=== PATIENT | male | born 1975 | race Caucasian/White ===

== ENCOUNTER 2016-12-08 22:39 | Emergency (ER) | payer OTHER ==
[2016-12-08] MEDS ORDERED: ASPIRIN 81 MG CHEWABLE TABLETS PO ONE (23:00)
--- NOTE | 2016-12-08 23:00 | PDOC ---
[id number] Source: Patient Exam Limitations: No Limitations - History of Present Illness Presenting Symptoms: Chest Pain Severity/Quality: reports: ingestion Location: reports: central Chest Pain Radiation: reports: no radiation Activities at Onset: reports: none Nitro Today/Relief: Yes: no nitro taken today Aspirin Received prior to arrival (Core Measure): Yes: 81 mg x 4, provided at home, provided by ED Associated Symptoms: Yes: Heartburn <Essence Swanson - Last Filed: 12/09/16 01:57> <Nuris Berman - Last Filed: 12/13/16 20:24> - General Chief Complaint: Chest Pain Stated Complaint: CHEST PAIN Time Seen by Provider: 12/08/16 22:59 - History of Present Illness Initial Comments: The patient is a 41 year old male with a past medical hx of HTN and fatty liver disease who presents to the ED complaining of chest pain since 1500 this afternoon. The patient reports associated shortness of breath. He notes his chest pain is localized to the center of his chest. The patient reports his pain has improved since the onset. He reports his pain is exacerbated with inspiration. The patient denies diaphoresis, palpitations The patient denies fever, chills, nausea, vomiting. PCP: Dr. Solis Surgical: Appendectomy, fractured clavicle repair (Amber Kraft) Past History <Amber Kraft - Last Filed: 12/08/16 23:49> - Past Medical History HTN: Yes - Surgical History Appendectomy: Yes - Immunization History Immunization Up to Date: No - Psycho/Social/Smoking Cessation Hx Suicidal Ideation: No Smoking History: Current every day smoker Have you smoked in the past 12 months: Yes Information on smoking cessation initiated: No Hx Alcohol Use: No Drug/Substance Use Hx: No <Essence Swanson - Last Filed: 12/09/16 01:57> <Nuris Berman - Last Filed: 12/13/16 20:24> - Past Medical History Allergies/Adverse Reactions: Allergies Allergy/AdvReac Type Severity Reaction Status Date / Time No Known Allergies Allergy Verified 12/08/16 22:44 Home Medications: Ambulatory Orders NK [No Known Home Medication] 12/08/16 Review of Systems - Review of Systems Able to Perform ROS?: Yes <Amber Kraft - Last Filed: 12/08/16 23:49> <Essence Swanson - Last Filed: 12/09/16 01:57> <Nuris Berman - Last Filed: 12/13/16 20:24> - Review of Systems Comments:: 12/08/16 23:48 CONSTITUTIONAL: Absent: fever, chills, diaphoresis, generalized weakness, malaise, loss of appetite HEENT: Absent: rhinorrhea, nasal congestion, throat pain, throat swelling, difficulty swallowing, mouth swelling, ear pain, eye pain, visual Changes CARDIOVASCULAR: +Chest pain. Absent: syncope, palpitations, irregular heart rate, lightheadedness, peripheral edema RESPIRATORY: +Shortness of breath. Absent: cough, orthopnea, wheezing, stridor, hemoptysis GASTROINTESTINAL: Absent: abdominal pain, abdominal distension, nausea, vomiting, diarrhea, constipation, melena, hematochezia GENITOURINARY: Absent: dysuria, frequency, urgency, hesitancy, hematuria, flank pain, genital pain MUSCULOSKELETAL: Absent: myalgia, arthralgia, joint swelling SKIN: Absent: rash, itching, pallor HEMATOLOGIC/IMMUNOLOGIC: Absent: easy bleeding, easy bruising, lymphadenopathy, frequent infections ENDOCRINE: Absent: unexplained weight gain, unexplained weight loss, heat intolerance, cold intolerance NEUROLOGIC: Absent: headache, focal weakness or paresthesias, dizziness, unsteady gait, seizure, mental status changes, bladder or bowel incontinence PSYCHIATRIC: Absent: anxiety, depression, suicidal or homicidal ideation, hallucinations. (Amber Kraft) *Physical Exam <Amber Kraft - Last Filed: 12/08/16 23:49> <Essence Swanson - Last Filed: 12/09/16 01:57> <Nuris Berman - Last Filed: 12/13/16 20:24> - Vital Signs Last Vital Signs Temp Pulse Resp BP Pulse Ox 97.3 F L 58 L 16 125/80 97 12/09/16 05:58 12/09/16 05:58 12/09/16 05:58 12/09/16 05:58 12/09/16 05:58 - Physical Exam Comments: 12/08/16 23:48 GENERAL: Well developed, well nourished. Awake and alert. No acute distress. HEENT: Normocephalic, atraumatic. PERRLA, EOMI. No conjunctival pallor. Sclera are non- icteric. Moist mucous membranes. Oropharynx is clear. NECK: Supple. Full ROM. No JVD. Carotid pulses 2+ and symmetric, without bruits. No thyromegaly. No lymphadenopathy. CARDIOVASCULAR: Regular rate and rhythm. No murmurs, rubs, or gallops. Distal pulses are 2+ and symmetric. PULMONARY: +Left lobe scattered expiratory wheezing. No evidence of respiratory distress. No rales or rhonchi. ABDOMINAL: Soft. Non-tender. Non-distended. No rebound or guarding. No organomegaly. Normoactive bowel sounds. MUSCULOSKELETAL Normal range of motion at all joints. No bony deformities or tenderness. No CVA tenderness. EXTREMITIES: No cyanosis. No clubbing. No edema. No calf tenderness. SKIN: Warm and dry. Normal capillary refill. No rashes. No jaundice. NEUROLOGICAL: Alert, awake, appropriate. Cranial nerves 2-12 intact. No deficits to light touch and temperature in face, upper extremities and lower extremities. PSYCHIATRIC: Cooperative. Good eye contact. Appropriate mood and affect. (Amber Kraft) Heart Score/ECG Review <Amber Kraft - Last Filed: 12/08/16 23:49> <Essence Swanson - Last Filed: 12/09/16 01:57> <Nuris Berman - Last Filed: 12/13/16 20:24> - ECG Impressions Comment:: 12/08/16 23:[address] Swanson NSR at a rate of 74 bpm Normal EKG (Amber Kraft) ED Treatment Course - LABORATORY CBC & Chemistry Diagram: 12/08/16 23:27 12/08/16 23:27 <Amber Kraft - Last Filed: 12/08/16 23:49> - LABORATORY CBC & Chemistry Diagram: 12/08/16 23:27 12/08/16 23:27 <Essence Swanson - Last Filed: 12/09/16 01:57> - LABORATORY CBC & Chemistry Diagram: 12/08/16 23:27 12/08/16 23:27 <Nuris Berman - Last Filed: 12/13/16 20:24> - ADDITIONAL ORDERS Additional order review: 12/08/16 23:27 RBC 4.89 MCV 87.0 MCHC 34.4 RDW 12.1 MPV 8.5 Neutrophils % 65.1 Lymphocytes % 24.3 Monocytes % 8.1 Eosinophils % 2.2 Basophils % 0.3 - Medications Given in the ED: ED Medications Discontinued Medications Generic Name Dose Route Start Last Admin Trade Name Dwaine PRN Reason Stop Dose Admin Al Hydroxide/Mg Hydroxide 30 ml 12/08/16 23:48 12/08/16 23:59 Mylanta Oral Suspension - PO 12/08/16 23:49 30 ml ONCE ONE Administration Aspirin 162 mg 12/08/16 23:00 12/08/16 23:29 Asa - PO 12/08/16 23:01 162 mg ONCE ONE Administration Medical Decision Making <Amber Kraft - Last Filed: 12/08/16 23:49> <Essence Swanson - Last Filed: 12/09/16 01:57> <Nuris Berman - Last Filed: 12/13/16 20:24> - Medical Decision Making 12/13/16 20:23 Pt signed out to me. Atypical CP; 2nd enzyme returned normal. He will be asked to follow with PMD. Outpatient cardio and GI as needed. (Nuris Berman) *DC/Admit/Observation/Transfer <Amber Kraft - Last Filed: 12/08/16 23:49> <Essence Swanson - Last Filed: 12/09/16 01:57> - Discharge Dispostion Admit: No <Nuris Berman - Last Filed: 12/13/16 20:24> Diagnosis at time of Disposition: Atypical chest pain - Discharge Dispostion Disposition: HOME Condition at time of disposition: Stable - Referrals Referrals: Sandi Kitchen [Primary Care Provider] - Daniel Lee MD [Staff Physician] - - Patient Instructions Printed Discharge Instructions: DI for Atypical Chest Pain - Attestations Scribe Attestion: 12/08/16 23:48 Documentation prepared by Amber Kraft, acting as regional medical director for Essence Swanson MD/DO. (Amber Kraft)
[2016-12-08] MEDS ORDERED: ASPIRIN 81 MG CHEWABLE TABLETS ONE (23:19)
[2016-12-08 23:31] VITALS: BMI 34.2
[2016-12-08 23:34] LABS: BASOPHIL 0.3 % (0-2.0); EOSINOPHIL 2.2 % (0-4.5); MCH 29.9 pg (25.7-33.7); MCHC 34.4 g/dl (32.0-35.9); MEAN PLT VOLUME 8.5 fl (7.5-11.1); NEUTROPHILS 65.1 % (42.8-82.8); PLATELET COUNT 226 K/MM3 (134-434); RDW 12.1 % (11.9-15.9); WHITE BLOOD COUNT 10.3 K/mm3 (4.0-10.0)
[2016-12-08 23:46] LABS: INR 0.99 (0.82-1.09); PROTHROMBIN TIME (PATIENT) 10.9 SEC (9.98-11.88)
[2016-12-08] MEDS ORDERED: MAG HYDROX/AL HYDROX/SIMETH 30 ML UNIT-DOSE CUP PO ONE (23:48)
[2016-12-08] MEDS ORDERED: MAG HYDROX/AL HYDROX/SIMETH 30 ML UNIT-DOSE CUP ONE (23:52)
[2016-12-09 00:09] LABS: ALBUMIN 4.7 g/dl (3.4-5.0); ANION GAP 11 (8-16); BILIRUBIN,TOTAL 0.3 mg/dL (0.2-1.0); CALCIUM 9.6 mg/dL (8.5-10.1); CHOLESTEROL 245 mg/dL (50-200); CO2 29 mmol/L (21-32); COCKROFT - GAULT 171.4; CREATININE 0.9 mg/dL (0.7-1.3); GLUCOSE,RANDOM 97 mg/dL (74-106); MAGNESIUM 2.2 mg/dL (1.8-2.4); SGOT/AST 28 U/L (15-37); SGPT/ALT 63 U/L (12-78); TOT PROT 8.4 g/dl (6.4-8.2)
[2016-12-09 00:10] LABS: ALK PHOS 62 U/L (45-117); TROPONIN I < 0.02 ng/ml (0.00-0.05)
[2016-12-09 03:01] LABS: LDL CHOLESTEROL (ONLY SJRH) 161 mg/dL (5-100)
[2016-12-09 05:59] VITALS: BP 125/80; PULSE 58; TEMP 97.3
[2016-12-09 06:25] LABS: TROPONIN I < 0.02 ng/ml (0.00-0.05)
--- NOTE | 2016-12-09 11:06 | EKG ---
Test Reason : Blood Pressure : / mmHG Vent. Rate : 074 BPM Atrial Rate : 074 BPM P-R Int : 164 ms QRS Dur : 094 ms QT Int : 376 ms P-R-T Axes : 014 028 037 degrees QTc Int : 417 ms NORMAL SINUS RHYTHM NORMAL ECG WHEN COMPARED WITH ECG OF 25-DEC-2015 05:52, PREMATURE ATRIAL COMPLEXES ARE NO LONGER PRESENT Confirmed by ALEJANDRA PINEDA MD ([id number]) on 12/09/2016 11:05:58 AM Referred By: Confirmed By:ALEJANDRA PINEDA MD
== END 2016-12-09 06:59 | disposition home or self-care (01) ==
LOC: JER 22:39
DX: R07.89 Other chest pain (principal); I10 Essential (primary) hypertension; K76.0 Fatty (change of) liver, not elsewhere classified; F17.210 Nicotine dependence, cigarettes, uncomplicated
CPT/HCPCS: 36415; 71010-TC; 80053; 80061; 82550; 82553; 83721; 83735; 83880; 84484; 85025; 85379; 85610; 93005; 93010; 99284-25

== ENCOUNTER 2017-09-11 21:19 | Emergency (ER) | payer OTHER ==
[2017-09-11] MEDS ORDERED: ASPIRIN 81 MG CHEWABLE TABLETS PO ONE (21:56)
[2017-09-11 21:59] VITALS: TEMP 100.3; BMI 34.2
--- NOTE | 2017-09-11 21:59 | PDOC ---
Rapid Medical Evaluation Chief Complaint: Headache Time Seen by Provider: 09/11/17 21:53 Medical Evaluation: Allergies Allergy/AdvReac Type Severity Reaction Status Date / Time No Known Allergies Allergy Verified 12/08/16 22:44 09/11/17 21:54 CC; high blood pressure and headache x 4 days. currently on amlodipine 5 mg took a dose 2pm. c/o pain to left side pain. + smoker PE: patient alert ox3. breath sounds clear occasional inspiratory wheezing Plan; cbc, cmp, cardiac, chest xay PMD: Dr. Jerez Patient to the ER for further management of care. 09/11/17 21:58
[2017-09-12] MEDS ORDERED: ACETAMINOPHEN 325 MG TABLET (FP) PO ONE (00:14)
--- NOTE | 2017-09-12 00:16 | PDOC ---
History of Present Illness - General History Source: Patient, Family Exam Limitations: No Limitations - History of Present Illness Initial Comments: 09/12/17 00:17 The patient is a 41 year old male, with a significant past medical history of hypertension, who presents to the emergency department complaining of headache and sore throat for four days and chest discomfort for two days. The patient reports the headache as a throbbing feeling that feels like a band around his head and reports he took 2 Excedrin for the headache with mild relief. The patient reports the chest discomfort as a mild burning sensation. The patient reports he has not had a flu shot. He denies chest pain, palpitations or shortness of breath. He denies numbness or tingling. He denies recent fever, chills, or dizziness. He denies dysuria, frequency, or hematuria. Allergies: NKA Past Surgical History: Appendix, Clavicle and Right ankle Social History: Occasional Smoker. PMD: Dr. Solis <Gutierrez Martinez - Last Filed: 09/12/17 00:21> <Maggie Brady - Last Filed: 09/12/17 01:57> - General Chief Complaint: Blood Pressure Problem Stated Complaint: HIGH BP Time Seen by Provider: 09/11/17 21:53 Past History <Gutierrez Martinez - Last Filed: 09/12/17 00:21> - Past Medical History COPD: No HTN: Yes - Surgical History Appendectomy: Yes Neurologic Surgery: Yes (rt ankle, lt clavicle) - Immunization History Immunization Up to Date: No - Suicide/Smoking/Psychosocial Hx Smoking History: Current some day smoker Have you smoked in the past 12 months: Yes Number of Cigarettes Smoked Daily: 2 Information on smoking cessation initiated: Yes 'Breaking Loose' booklet given: 09/11/17 Hx Alcohol Use: Yes Drug/Substance Use Hx: No Substance Use Type: Alcohol <Maggie Brady - Last Filed: 09/12/17 01:57> - Past Medical History Allergies/Adverse Reactions: Allergies Allergy/AdvReac Type Severity Reaction Status Date / Time No Known Allergies Allergy Verified 09/11/17 21:54 Home Medications: Ambulatory Orders Amlodipine Besylate [Norvasc -] 5 mg PO DAILY 09/12/17 Review of Systems - Review of Systems Comments:: 09/12/17 00:17 GENERAL/CONSTITUTIONAL: No fever or chills. No weakness. HEAD, EYES, EARS, NOSE AND THROAT: +Sore throat. No change in vision. No ear pain or discharge. CARDIOVASCULAR: +Chest discomfort. No chest pain or shortness of breath. RESPIRATORY: No cough, wheezing, or hemoptysis. GASTROINTESTINAL: No nausea, vomiting, diarrhea or constipation. GENITOURINARY: No dysuria, frequency, or change in urination. MUSCULOSKELETAL: No joint or muscle swelling or pain. No neck or back pain. SKIN: No rash NEUROLOGIC: +Headache. No vertigo, loss of consciousness, or change in strength/ sensation. ENDOCRINE: No increased thirst. No abnormal weight change. HEMATOLOGIC/LYMPHATIC: No anemia, easy bleeding, or history of blood clots. ALLERGIC/IMMUNOLOGIC: No hives or skin allergy. <Gutierrez Martinez - Last Filed: 09/12/17 00:21> *Physical Exam - Vital Signs Last Vital Signs Temp Pulse Resp BP Pulse Ox 100.3 F H 90 18 164/81 98 09/11/17 21:54 09/11/17 21:54 09/11/17 21:54 09/11/17 21:54 09/11/17 21:54 - Physical Exam Comments: 09/12/17 00:18 GENERAL: Awake, alert, and fully oriented, in no acute distress HEAD: No signs of trauma EYES: PERRLA, EOMI, sclera anicteric, conjunctiva clear ENT: Auricles normal inspection, hearing grossly normal, nares patent, oropharynx clear without exudates. Moist mucosa NECK: Normal ROM, supple, no lymphadenopathy, JVD, or masses LUNGS: Breath sounds equal, clear to auscultation bilaterally. No wheezes, and no crackles HEART: Regular rate and rhythm, normal S1 and S2, no murmurs, rubs or gallops ABDOMEN: Soft, nontender, normoactive bowel sounds. No guarding, no rebound. No masses EXTREMITIES: Normal range of motion, no edema. No clubbing or cyanosis. No cords, erythema, or tenderness NEUROLOGICAL: Cranial nerves II through XII grossly intact. Normal speech, normal gait SKIN: Warm, Dry, normal turgor, no rashes or lesions noted. <Gutierrez Martinez - Last Filed: 09/12/17 00:21> - Vital Signs Last Vital Signs Temp Pulse Resp BP Pulse Ox 100.3 F H 90 18 164/81 98 09/11/17 21:54 09/11/17 21:54 09/11/17 21:54 09/11/17 21:54 09/11/17 21:54 <Maggie Brady - Last Filed: 09/12/17 01:57> Heart Score/ECG Review - ECG Intrepretation Comment:: 09/12/17 01:14 sinus at 75, nl axis, nl interval, no acute st/t wave findings, nonspecific t wave inversions III <Maggie Brady - Last Filed: 09/12/17 01:57> ED Treatment Course - LABORATORY CBC & Chemistry Diagram: 09/12/17 00:10 09/12/17 00:10 <Maggie Brady - Last Filed: 09/12/17 01:57> Medical Decision Making - Medical Decision Making 09/12/17 00:14 a/p: 41yo male with whatley and cp x 4 days -sore throat -sour taste in mouth -will check labs, ekg, cxr, trop -will medicate for whatley with reglan and benadryl and ivf -will monitor and reassess 09/12/17 00:15 states whatley feels like a band -suspect tension whatley -no neck pain or meningeal signs -mild fever on vitals, will add tylenol -obtain flu swab 09/12/17 00:40 cxr without acute findings 09/12/17 01:13 pt and family refused to have IV placed or to receive iv meds 09/12/17 01:54 pt feeling better. WHATLEY improved. No meningeal signs. Discussed lab results with the patient. Known hx of elevated LFT. discussed wbc. CXR clear. EKG discussed. Flu negative. Discussed all reasons to return to the ED and need for follow up with his PMD. Discussed headache management at home. Answered all questions. <Maggie Brady - Last Filed: 09/12/17 01:57> *DC/Admit/Observation/Transfer - Attestations Scribe Attestion: 09/12/17 00:18 Documentation prepared by Gutierrez Martinez, acting as medical leader for Maggie Brady DO. <Gutierrez Martinez - Last Filed: 09/12/17 00:21> - Discharge Dispostion Admit: No - Attestations Physician Attestion: 09/12/17 01:28 I, Dr. Maggie Brady DO, attest that this document has been prepared under my direction and personally reviewed by me in its entirety. I further attest, that it accurately reflects all work, treatment, procedures and medical decision -making performed by me. <Maggie Brady - Last Filed: 09/12/17 01:57> Diagnosis at time of Disposition: Chest pain, Headache, Hypertension - Discharge Dispostion Disposition: HOME Condition at time of disposition: Stable - Referrals Referrals: Deondre Solis MD [Primary Care Provider] - - Patient Instructions Printed Discharge Instructions: DI for High Blood Pressure, DI for Headache Additional Instructions: Please call your primary care physician and schedule a follow up appointment for 2-3 days. Please take tylenol or motrin for your headache. Please return to the ED with any further complaints. - Post Discharge Activity
[2017-09-12] MEDS ORDERED: ASPIRIN 81 MG CHEWABLE TABLETS ONE (00:32)
[2017-09-12] MEDS ORDERED: ACETAMINOPHEN 325 MG TABLET (FP) ONE (00:32)
[2017-09-12 01:14] LABS: BASO % 0.3 % (0-2.0); EOS % 1.7 % (0-4.5); HEMATOCRIT 43.9 % (35.4-49); HEMOGLOBIN 15.2 GM/dL (11.7-16.9); MCH 31.5 pg (25.7-33.7); MCHC 34.6 g/dl (32.0-35.9); MEAN CELL VOLUME 90.8 fl (80-96); MEAN PLT VOLUME 8.5 fl (7.5-11.1); MONO % 7.6 % (3.8-10.2); NEUT % 66.4 % (42.8-82.8); PLATELET COUNT 255 K/MM3 (134-434); RBC 4.83 M/mm3 (4.00-5.60); RDW 12.2 % (11.9-15.9); WHITE BLOOD COUNT 10.3 K/mm3 (4.0-10.0)
[2017-09-12 01:30] LABS: INR 1.02 (0.82-1.09); PROTHROMBIN TIME (PATIENT) 11.5 SEC (9.98-11.88)
[2017-09-12 01:41] LABS: ALBUMIN 4.7 g/dl (3.4-5.0); ANION GAP 9 (8-16); BILIRUBIN,TOTAL 0.6 mg/dL (0.2-1.0); BLOOD UREA NITROGEN 14 mg/dL (7-18); CALCIUM 9.2 mg/dL (8.5-10.1); CHLORIDE 100 mmol/L (98-107); CO2 29 mmol/L (21-32); GLUCOSE,RANDOM 96 mg/dL (74-106); MAGNESIUM 2.1 mg/dL (1.8-2.4); POTASSIUM 3.8 mmol/L (3.5-5.1); SGOT/AST 58 U/L (15-37); SGPT/ALT 118 U/L (12-78); SODIUM 138 mmol/L (136-145); TOT PROT 9.1 g/dl (6.4-8.2)
[2017-09-12 01:43] LABS: ALK PHOS 63 U/L (45-117)
--- NOTE | 2017-09-12 09:24 | EKG ---
Test Reason : Blood Pressure : / mmHG Vent. Rate : 075 BPM Atrial Rate : 075 BPM P-R Int : 164 ms QRS Dur : 092 ms QT Int : 382 ms P-R-T Axes : -05 016 020 degrees QTc Int : 426 ms SINUS RHYTHM WITH PREMATURE ATRIAL COMPLEXES NON-SPECIFIC INTRA-VENTRICULAR CONDUCTION DELAY WHEN COMPARED WITH ECG OF 08-DEC-2016 22:55, PREMATURE ATRIAL COMPLEXES ARE NOW PRESENT Confirmed by KRISTOPHER DANG, WILDA ([id number]) on 09/12/2017 9:24:16 AM Referred By: Confirmed By:WILDA SUMMERS MD
[2017-09-14 12:05] VITALS: BP 147/76; PULSE 88
== END 2017-09-12 02:04 | disposition home or self-care (01) ==
LOC: JER 21:19
DX: I10 Essential (primary) hypertension (principal); F17.210 Nicotine dependence, cigarettes, uncomplicated
CPT/HCPCS: 36415; 71046-TC; 80053; 82550; 82553; 83735; 84484; 85025; 85610; 87804; 93005; 93010; 99281-25; 99283-25